=== PATIENT | male | born 1970 | race Caucasian/White ===

== ENCOUNTER 2017-09-29 15:31 | Emergency (ER) | payer OTHER ==
[2017-09-29 15:36] VITALS: TEMP 98.2
[2017-09-29] MEDS ORDERED: TDAP ADULT 0.5 ML INJ (BOOSTRIX) IM ONE (15:54)
--- NOTE | 2017-09-29 15:59 | EDPHY ---
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 He was working with a screwdriver went slipped off and struck a fan blade that was rotated approximately 1750 rpm. He sustained injury to the right middle ring and little finger distal phalanges. He has significant pain in these 3 fingers. No pain or injury elsewhere. The most profound injuries to the middle finger. He does have skin hanging off of the finger. No pulsatile bleeding. No nausea or vomiting from this. Tetanus is in question, he thinks it was updated November this year but he is not sure. This happened just prior to arrival. No other associated complaints or modifying factors. NPO as of 12:30 p.m. REVIEW OF SYSTEMS: Ten systems reviewed and are negative unless otherwise noted in the HPI PAST MEDICAL HISTORY: Back pain PAST SURGICAL HISTORY: Micro diskectomy 2016 SOCIAL HISTORY: FAMILY HISTORY: Noncontributory EXAMINATION General Appearance: Alert, no distress Cardiovascular: Symmetric radial pulses 2+. Brisk cap refill of the right little and ring fingers. Unable to test cap refill on the right middle finger as the nail was partially avulsed. Neurological: A&O, light sensation to the back of the hand symmetric. Interossei strength symmetric Skin: Warm and dry, no rash. Complex lacerations of the middle and ring fingers on the right hand. These are the distal phalanges. Middle finger laceration goes through the nail bed with complete maceration of the tissue. Ring finger laceration involves the nail bed with moderate laceration of the tissue. No pulsatile bleeding. No foreign body. There is exposure of the distal phalanx on each finger. Extremities: Tenderness to palpation of the right hand middle, ring and little fingers. Complex lacerations as noted above. Psychiatric: Mood and affect normal DIFFERENTIAL DIAGNOSES: Including but not limited to partial amputation complex laceration, open fracture, laceration MDM: 3:55 p.m. Injuries to the right middle finger, ring finger and little finger distal phalanges from a high RPM fan blade. There is partial amputation of the middle finger. Difficult to fully examine the ring and little finger due to dried blood. I have administered digital blocks all 3 fingers. Proceed with x-ray and irrigation. Tetanus will be updated. No injury elsewhere. No pulsatile bleeding. 4:08 p.m. X-ray as read by me at bedside reveals open a tuft fractures of the middle and ring fingers. I do not appreciate a fracture or significant injury to the little finger. I will consult hand surgeon. Proceed with irrigation. Proceed with IV placement for Ancef infusion. 4:20 p.m. I have re-evaluated the wounds not there irrigated. There is complex laceration of the right distal phalanx with extensive maceration of tissue and involvement of the nail and nail bed. The ring finger is less complex but there is involvement of the nail bed with maceration. I discussed this with Dr. Choe. He is starting the case and will come evaluate the patient after the current case. He agrees with the plan thus far. Patient is currently receiving his Ancef by IV. He is in no acute distress. 5:00 p.m. At this time a I discussed the case with Dr. Haddad. He will assume care the patient at this time. Please see his note for final disposition. Disposition will be determined after evaluation by hand surgeon in the emergency department. PROCEDURE: Digital Block, 1. Indication: Finger laceration Consent: Verbal Location: Right middle finger Anesthesia: Lidocaine 1% plain, 0.25% Marcaine plain, 5mL Description: Base of the finger was prepped. The above was infused without difficulty. Tolerated well. Good anesthesia. Complications: None PROCEDURE: Digital Block, 2. Indication: Finger laceration Consent: Verbal Location: Right ring finger Anesthesia: Lidocaine 1% plain, 0.25% Marcaine plain, 5mL Description: Base of the finger was prepped. The above was infused without difficulty. Tolerated well. Good anesthesia. Complications: None PROCEDURE: Digital Block, 3. Indication: Finger laceration Consent: Verbal Location: Right little finger Anesthesia: Lidocaine 1% plain, 0.25% Marcaine plain, 5mL Description: Base of the finger was prepped. The above was infused without difficulty. Tolerated well. Good anesthesia. Complications: None SUPERVISION: Patient was independently examined, but I discussed the case with my secondary supervising physician Dr. Haddad ED Precautions: Worsening pain. Erythema, edema, cyanosis, pallor, paresthesia or anesthesia. (Drew Ashby) Discussion: Daija in ED 1844 to see and evaluate patient. 1954: Dr. Choe has finished, prescriptions written by me at his request for Keflex and Percocet. He will follow-up in the next week with Dr. Choe in the office. (Wali Haddad) - Objective Vital Signs: Initial Vital Signs Temperature (C) 98.2 F 09/29/17 15:34 Heart Rate 77 09/29/17 15:34 Respiratory Rate 18 09/29/17 15:34 Blood Pressure 149/95 H 09/29/17 15:34 O2 Sat (%) 98 09/29/17 15:34 O2 Delivery Mode Room Air Allergies/Adverse Reactions: No Known Allergies Allergy (Unverified 09/29/17 15:34) Home Medications: Medication Instructions Recorded Cephalexin [Keflex] 500 mg PO QID #28 cap 09/29/17 oxyCODONE/APAP 5/325 [Percocet] 1 tab PO Q4-6PRN PRN #13 tab 09/29/17 Laboratory Results: Laboratory Results 09/29/17 16:40 09/29/17 16:40 Medications Given: Discontinued Medications Cephalexin (Keflex 500 Mg Prepack#4) 1 btl TAKEHOME EDNOW ONE PRN Reason: Protocol Stop: 09/29/17 19:55 Last Admin: 09/29/17 20:22 Dose: 1 btl Diphtheria/Tetanus/Acell Pertussis (Boostrix) 0.5 ml IM .ONCE ONE Stop: 09/29/17 15:55 Last Admin: 09/29/17 16:04 Dose: 0.5 ml Cefazolin Sodium/Dextrose (Ancef 2 Gm (Premix)) 100 mls @ 200 mls/hr IV EDNOW ONE Stop: 09/29/17 17:29 Last Admin: 09/29/17 17:03 Dose: 100 mls Oxycodone/Acetaminophen (Percocet 5/325mg Prepack#4) 1 btl TAKEHOME EDNOW ONE Stop: 09/29/17 19:55 Last Admin: 09/29/17 20:21 Dose: 1 btl Departure - Departure Disposition: Home, Routine, Self-Care Clinical Impression: Open fracture of distal phalanx of right middle finger, Open fracture of distal phalanx of right ring finger Condition: Good Instructions: Laceration (ED) Referrals: Jean Choe MD [Medical Doctor] - As per Instructions (Follow-up next week in the office with Dr. Choe.) Prescriptions: Cephalexin [Keflex] 500 mg PO QID #28 cap oxyCODONE/APAP 5/325 [Percocet] 1 tab PO Q4-6PRN PRN #13 tab PRN Reason: Pain
[2017-09-29] MEDS ORDERED: ceFAZolin 2 GM in NS 100 ML IV ONE (16:12)
[2017-09-29 16:46] LABS: HEMATOCRIT 46.2 % (40.0-51.0); HEMOGLOBIN 16.4 g/dL (13.7-17.5); MEAN CELL HEMOGLOBIN 34.5 pg (27.9-34.1); MEAN CELL HEMOGLOBIN CONCENTR. 35.5 g/dL (32.4-36.7); MEAN CELL VOLUME 97.3 fL (81.5-99.8); RED BLOOD CELL COUNT 4.75 10^6/uL (4.40-6.38); RED CELL DISTRIBUTION WIDTH 12.1 % (11.5-15.2)
[2017-09-29] MEDS ORDERED: ceFAZolin 1 GM in NS 100 ML IV ONE ×2 (16:48→16:49)
[2017-09-29 16:58] LABS: ANION GAP 10 mEq/L (8-16); CALCIUM 10.2 mg/dL (8.5-10.4); CARBON DIOXIDE 23 mEq/l (22-31); CHLORIDE 107 mEq/L (97-110); CREATININE 0.9 mg/dL (0.7-1.3); GLOMERULAR FILTRATION RATE > 60; GLUCOSE 103 mg/dL (70-100); POTASSIUM 4.4 mEq/L (3.5-5.2); SODIUM 140 mEq/L (134-144)
[2017-09-29] MEDS ORDERED: ceFAZolin 2 GM/DEXTROSE 100 ML IV ONE (17:00)
[2017-09-29] MEDS ORDERED: CEPHALEXIN 500MG PREPACK#4 BTL TAKEHOME ONE (19:54)
[2017-09-29] MEDS ORDERED: OXYCODONE/APAP 5/325MG PREPACK#4 BTL TAKEHOME ONE (19:54)
[2017-09-29 20:30] VITALS: BP 143/108; PULSE 68; RESP 16; O2SAT 96
--- NOTE | 2017-09-30 00:39 | GCON ---
[f rep st] CONSULTATION EMERGENCY ROOM NOTE DATE OF CONSULTATION: 09/29/2017 CHIEF COMPLAINT: Fan injuries to middle and ring fingers of right hand. 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 He susta ined severe lacerations to the tips of his fingers. PAST MEDICAL HISTORY: Generally unremarkable. MEDICATIONS: None. ALLERGIES: None known. TETANUS STATUS: Unknown so a shot was given in the emergency room. PHYSICAL EXAMINATION: GENERAL: Pleasant, healthy 47-year-old male. SKIN: He has multiple flapping ribbon like lacerations to the distal segments of his middle and ring fingers, primarily on the dors al surface through the nail and the sterile matrix of the nail bed and multiple parallel lacerations. These are associated with some questionably viable segments of tissue. There is a fracture of the underlying distal tuft of the distal phalanx. This is confirmed on the x-ray. Total length of the l acerations between the 2 fingers is probably in the 8-10 cm range. TREATMENT RENDERED: Wounds have been irrigated extensively prior to my arrival, and after repeating the local anesthetic blocks of the fingers, prepped and free draped, Karen drains were used as tour niquets and the fingers were debrided and once again irrigated. Closure was carried out using multip le 5-0 Prolene and 4-0 Prolene sutures both through skin and through nail and nail bed in order to pi kevin the multiple flaps together. Dressing of Xeroform gauze was applied followed by a fiberglass spl int. DISCHARGE PLAN AND FOLLOWUP: In addition to IV Ancef given in the emergency room, a prescription has been written for Keflex, as well as for Percocet for pain relief. I will plan to see the patient in my office in 3-4 days' time. /[id number]/MODL
== END 2017-09-29 20:32 | disposition home or self-care (01) ==
PROC: 3E0T3BZ Introduction of Anesthetic Agent into Peripheral Nerves and Plexi, Percutaneous Approach (ICD-10-PCS; principal; 2017-09-29)
DX: S62.632B Displaced fracture of distal phalanx of right middle finger, initial encounter for open fracture (principal); S62.634B Displaced fracture of distal phalanx of right ring finger, initial encounter for open fracture; Z23 Encounter for immunization; W45.8XXA Other foreign body or object entering through skin, initial encounter
CPT/HCPCS: 96365; J0690